=== PATIENT | female | born 1955 | race Caucasian/White ===

== ENCOUNTER 2016-04-27 15:39 | Inpatient (IN) | payer BC ==
[~2016-04-27] VITALS: Ht 149.9 cm; Wt 53.7 kg
[~2016-04-27 15:39] MED LIST: ALBU0.084; ALBU18; DOXY-216 PO; FLUT500M6; IPRASOL39; LOS50T PO; MON10T PO; NIFE60TA59 PO; PREDNISONE 5 MG TABLET; TUDORZA PRESSAIR 400 MCG; VARE0.5P4; VARE0.5P4 PO
[2016-04-27] MEDS ORDERED: SODIUM CHLORIDE 0.9% 1,000 ML IV ONE (16:08)
[2016-04-27 16:14] LABS: Basophils # (auto) 0.1 uL; Basophils % (auto) 0.3 % (0.0-2.0); Eosinophils # (auto) 0.1 uL; Eosinophils % (auto) 0.7 % (0.0-7.0); Hematocrit 42.1 % (36.0-46.0); Hemoglobin 13.5 g/dL (12.2-16.2); Lymphocytes # (auto) 4.5 uL; Lymphocytes % (auto) 28.1 % (10.0-50.0); Mean Corpuscular Hemoglobin 31.1 pg (28.0-32.0); Mean Corpuscular Hgb Conc. 32.1 g/dL (32.0-36.0); Mean Corpuscular Volume 96.9 fL (80.0-100.0); Mean Platelet Volume 7.5 fL (7.4-10.4); Monocytes # (auto) 0.9 uL; Monocytes % (auto) 5.8 % (0.0-12.0); Neutrophils # (auto) 10.5 uL; Neutrophils % (auto) 65.1 % (37.0-80.0); Platelet Count (auto) 366 10^3/uL (140-450); Red Cell Distribution Width 14.7 % (11.6-16.0); White Blood Cell 16.1 10^3/uL (4.4-10.8)
[2016-04-27] MEDS ORDERED: methylPREDNISolone SOD SUCC 125 MG/2 ML VL IV ONE (16:15)
[2016-04-27 16:32] LABS: Albumin 4.5 g/dL (3.4-5.0); BUN/Creatinine Ratio 14.3; Bilirubin, Total 0.3 mg/dL (0.2-1.0); Calcium 9.2 mg/dL (8.5-10.1); Magnesium 2.5 mg/dL (1.6-2.6); Potassium 3.9 mmol/L (3.5-5.1); Total Protein 7.3 g/dL (6.4-8.2)
[2016-04-27] MEDS ORDERED: cefTRIAXone 1GM/50ML D5W 50 ML IV ONE (17:30)
[2016-04-27] MEDS ORDERED: predniSONE 20 MG TAB PO ONE (19:15)
[2016-04-27] MEDS ORDERED: cloNIDine HCL 0.1 MG TAB PO PRN (19:15)
[2016-04-27] MEDS ORDERED: DOCUSATE SOD 100 MG CAP PO PRN (19:30)
[2016-04-27] MEDS ORDERED: HYDROcodone-ACET 5/325MG TAB PO PRN (19:30)
[2016-04-27] MEDS ORDERED: ONDANSETRON HCL 4 MG/2 ML VIAL IV PRN (19:30)
[2016-04-27] MEDS ORDERED: NITROGLYCERIN 0.4 MG SL TAB SL PRN (19:30)
[2016-04-27] MEDS ORDERED: ACETAMINOPHEN 325 MG TAB PO PRN (19:30)
[2016-04-27] MEDS ORDERED: MORPHINE SULF INJ 2 MG/ML SYRINGE 1ML IV PRN (19:30)
[2016-04-27] MEDS: LORazepam 0.5 MG TAB PO PRN (19:42)
[2016-04-27 19:45] VITALS: BP 142/79
[2016-04-27] MEDS ORDERED: AZITHROMYCIN 500MG/D5W 250ML 250 ML IV ONE (19:45)
[2016-04-27] MEDS: LOSARTAN POTASSIUM 50 MG TAB PO ONE ×2 (19:50→19:52)
[2016-04-27 20:30] VITALS: BP 158/94
[2016-04-27] MEDS: TEMAZEPAM 15 MG CAP PO PRN (20:58)
[2016-04-27] MEDS: FAMOTIDINE 20 MG TAB PO SCH (22:10)
[2016-04-27] MEDS: SODIUM CHLOR 0.9% PF (SALINE LOCK) 10ML VIAL IV SCH (22:10)
[2016-04-27] MEDS: IPRATROPIUM BROM 0.5 MG/2.5ML INH SOL NEB SCH (22:39)
[2016-04-27] MEDS: BUDESONIDE (INHALATION) 0.5 MG/2 ML NEB NEB SCH (22:39)
[2016-04-27] MEDS: ALBUTEROL SULF 2.5 MG/0.5ML(0.5%) NEB SOLN NEB SCH (22:39)
[2016-04-28] MEDS ORDERED: LORazepam 0.5 MG TAB PO ONE (00:45)
[2016-04-28 05:00] VITALS: BP 132/71
[2016-04-28 05:32] LABS: Hemoglobin 12.1 g/dL (12.2-16.2); Mean Corpuscular Hemoglobin 31.3 pg (28.0-32.0); Mean Corpuscular Volume 97.9 fL (80.0-100.0); Mean Platelet Volume 7.5 fL (7.4-10.4); Platelet Count (auto) 344 10^3/uL (140-450); Red Cell Distribution Width 14.5 % (11.6-16.0); SUSPECT VIEW TRANSMISSION; White Blood Cell 22.2 10^3/uL (4.4-10.8)
[2016-04-28 05:38] LABS: Metamyelocytes % 0; Myelocytes % 0; Promyelocytes % 0; Reactive Lymphocytes 0
[2016-04-28] MEDS: SODIUM CHLOR 0.9% PF (SALINE LOCK) 10ML VIAL IV SCH ×3 (05:43→22:01)
[2016-04-28 05:50] LABS: Albumin 3.6 g/dL (3.4-5.0); BUN/Creatinine Ratio 15.4; Calcium 8.4 mg/dL (8.5-10.1); Potassium 4.1 mmol/L (3.5-5.1)
[2016-04-28 05:58] LABS: Bilirubin, Total 0.3 mg/dL (0.2-1.0); Total Protein 6.5 g/dL (6.4-8.2)
[2016-04-28] MEDS: BUDESONIDE (INHALATION) 0.5 MG/2 ML NEB NEB SCH ×2 (07:50→18:29)
[2016-04-28] MEDS: ALBUTEROL SULF 2.5 MG/0.5ML(0.5%) NEB SOLN NEB SCH ×3 (07:50→18:28)
[2016-04-28] MEDS: IPRATROPIUM BROM 0.5 MG/2.5ML INH SOL NEB SCH ×3 (07:50→18:28)
[2016-04-28 08:00] LABS: Platelet Estimate Adequate
[2016-04-28 08:01] LABS: RBC Morphology Normal
[2016-04-28 09:07] VITALS: BP 123/69
[2016-04-28] MEDS: MULTIPLE VITAMIN TAB PO SCH (09:58)
[2016-04-28] MEDS: FAMOTIDINE 20 MG TAB PO SCH ×2 (09:58→22:01)
[2016-04-28] MEDS: LOSARTAN POTASSIUM 50 MG TAB PO SCH (09:59)
[2016-04-28] MEDS: CITALOPRAM HYDROBR 20 MG TAB PO SCH (10:00)
[2016-04-28] MEDS ORDERED: predniSONE 20 MG TAB PO SCH (10:00)
[2016-04-28] MEDS: AZITHROMYCIN 500MG/D5W 250ML 250 ML IV SCH (10:02)
[2016-04-28] MEDS: MONTELUKAST SODIUM 10 MG TAB PO SCH (10:02)
[2016-04-28] MEDS: cefTRIAXone 1GM/50ML D5W 50 ML IV SCH (10:02)
[2016-04-28 10:33] LABS: Urine Bilirubin Negative (Negative); Urine Blood Negative /uL (Negative); Urine Color Yellow (Yellow); Urine Glucose Normal (Normal); Urine Ketone Negative (Negative); Urine Mucus FEW (None Seen); Urine Nitrite Negative (Negative); Urine RBC 2 /hpf (0 - 4); Urine Squamous Epithelial Cell FEW /hpf (<5); Urine Urobilinogen Normal (Negative)
[2016-04-28 13:00] VITALS: BP 122/63
[2016-04-28 17:08] VITALS: BP 136/75
[2016-04-28] MEDS: LORazepam 0.5 MG TAB PO PRN (20:17)
[2016-04-28 22:00] VITALS: BP 129/72
[2016-04-28] MEDS: TEMAZEPAM 15 MG CAP PO PRN (22:01)
[2016-04-29] MEDS: IPRATROPIUM BROM 0.5 MG/2.5ML INH SOL NEB SCH ×3 (00:13→11:44)
[2016-04-29] MEDS: ALBUTEROL SULF 2.5 MG/0.5ML(0.5%) NEB SOLN NEB SCH ×3 (00:13→11:44)
[2016-04-29 05:00] VITALS: BP 132/78
[2016-04-29] MEDS: SODIUM CHLOR 0.9% PF (SALINE LOCK) 10ML VIAL IV SCH ×2 (06:00→14:02)
[2016-04-29] MEDS: LORazepam 0.5 MG TAB PO PRN (06:09)
[2016-04-29] MEDS: BUDESONIDE (INHALATION) 0.5 MG/2 ML NEB NEB SCH (06:30)
[2016-04-29 06:40] LABS: INR 1.01 (0.9-1.15); Prothrombin Time 10.4 sec (9.37-12.3)
[2016-04-29 06:44] LABS: Basophils # (auto) 0 uL; Basophils % (auto) 0.1 % (0.0-2.0); Eosinophils # (auto) 0.1 uL; Eosinophils % (auto) 0.5 % (0.0-7.0); Hematocrit 36.3 % (36.0-46.0); Hemoglobin 11.8 g/dL (12.2-16.2); Lymphocytes # (auto) 3.4 uL; Lymphocytes % (auto) 25.2 % (10.0-50.0); Mean Corpuscular Hemoglobin 31.3 pg (28.0-32.0); Mean Corpuscular Hgb Conc. 32.5 g/dL (32.0-36.0); Mean Corpuscular Volume 96.3 fL (80.0-100.0); Mean Platelet Volume 7.5 fL (7.4-10.4); Monocytes # (auto) 0.8 uL; Monocytes % (auto) 6.1 % (0.0-12.0); Neutrophils # (auto) 9.1 uL; Neutrophils % (auto) 68.1 % (37.0-80.0); Platelet Count (auto) 314 10^3/uL (140-450); Red Cell Distribution Width 14.5 % (11.6-16.0); White Blood Cell 13.3 10^3/uL (4.4-10.8)
[2016-04-29 06:58] LABS: Calcium 8.2 mg/dL (8.5-10.1); Magnesium 2.4 mg/dL (1.6-2.6); Potassium 3.8 mmol/L (3.5-5.1)
[2016-04-29 09:07] VITALS: BP 120/61
[2016-04-29] MEDS: MONTELUKAST SODIUM 10 MG TAB PO SCH (09:13)
[2016-04-29] MEDS: MULTIPLE VITAMIN TAB PO SCH (09:13)
[2016-04-29] MEDS: FAMOTIDINE 20 MG TAB PO SCH (09:13)
[2016-04-29] MEDS: LOSARTAN POTASSIUM 50 MG TAB PO SCH (09:13)
[2016-04-29] MEDS: CITALOPRAM HYDROBR 20 MG TAB PO SCH (09:15)
[2016-04-29] MEDS: cefTRIAXone 1GM/50ML D5W 50 ML IV SCH (09:16)
[2016-04-29] MEDS ORDERED: predniSONE 20 MG TAB PO SCH (10:00)
[2016-04-29] MEDS: AZITHROMYCIN 500MG/D5W 250ML 250 ML IV SCH (10:17)
[2016-04-29 13:15] VITALS: BP 119/75
[2016-04-29 13:22] VITALS: BP 120/61
== END 2016-04-29 15:10 | disposition home or self-care (01) | DRG 191 ==
LOC: EDBD 15:39 → ER 15:49 → TELE 15:50 → EDUNIT# 15:50 → TELE-WESTW 20:35
PROVIDERS: ADMIT Internal Medicine; ATTEND Internal Medicine
DX: J44.0 Chronic obstructive pulmonary disease with (acute) lower respiratory infection (principal); J45.901 Unspecified asthma with (acute) exacerbation; J20.9 Acute bronchitis, unspecified; J44.1 Chronic obstructive pulmonary disease with (acute) exacerbation; R09.02 Hypoxemia; F17.200 Nicotine dependence, unspecified, uncomplicated; I10 Essential (primary) hypertension; E05.00 Thyrotoxicosis with diffuse goiter without thyrotoxic crisis or storm; Z88.5 Allergy status to narcotic agent; Z99.81 Dependence on supplemental oxygen; Z88.2 Allergy status to sulfonamides; Z84.89 Family history of other specified conditions; Z80.9 Family history of malignant neoplasm, unspecified
CPT/HCPCS: 36415; 36600; 71010; 80048; 80053; 81001; 82805; 83735; 84443; 84484; 85007; 85025; 85027; 85049; 85610; 87040; 87070; 87086; 87205; 93005; 94640; 94761; 96361; 96365; 96367; 96375; J0696

== ENCOUNTER → 2016-06-17 | Outpatient (CLI) | payer BC | END | disposition home or self-care (01) | LOC: US 10:02 | PROVIDERS: ATTEND Internal Medicine | DX: E04.1 Nontoxic single thyroid nodule (principal) | CPT/HCPCS: 76942 ==

== ENCOUNTER → 2016-11-12 | Outpatient (CLI) | payer BC ==
[2016-11-12 12:41] LABS: Basophils # (auto) 0 uL; Basophils % (auto) 0.2 % (0.0-2.0); CONDITION Y; Eosinophils # (auto) 0 uL; Hematocrit 35.6 % (36.0-46.0); Hemoglobin 11.8 g/dL (12.2-16.2); Lymphocytes # (auto) 0.8 uL; Lymphocytes % (auto) 10.2 % (10.0-50.0); Mean Corpuscular Hemoglobin 32.9 pg (28.0-32.0); Mean Corpuscular Hgb Conc. 33.2 g/dL (32.0-36.0); Mean Corpuscular Volume 99.1 fL (80.0-100.0); Mean Platelet Volume 7.3 fL (7.4-10.4); Monocytes # (auto) 0.1 uL; Monocytes % (auto) 1.5 % (0.0-12.0); Neutrophils # (auto) 6.7 uL; Neutrophils % (auto) 88.1 % (37.0-80.0); Platelet Count (auto) 396 10^3/uL (140-450); Red Cell Distribution Width 14.5 % (11.6-16.0); White Blood Cell 7.6 10^3/uL (4.4-10.8)
[2016-11-12 13:05] LABS: Urine Bilirubin Negative (Negative); Urine Blood TRACE /uL (Negative); Urine Color Yellow (Yellow); Urine Glucose Normal (Normal); Urine Ketone Negative (Negative); Urine Nitrite Negative (Negative); Urine RBC <1 /hpf (0 - 4); Urine Squamous Epithelial Cell FEW /hpf (<5); Urine Urobilinogen Normal (Negative)
[2016-11-12 18:53] LABS: Potassium 4.1 mmol/L (3.5-5.1)
[2016-11-12 18:54] LABS: Albumin 4.2 g/dL (3.4-5.0); BUN/Creatinine Ratio 12.9; Bilirubin, Total 0.3 mg/dL (0.2-1.0); Calcium 8.9 mg/dL (8.5-10.1); Total Protein 7.2 g/dL (6.4-8.2)
== END | disposition home or self-care (01) ==
LOC: LAB 12:18
PROVIDERS: ATTEND Internal Medicine
DX: Z00.01 Encounter for general adult medical examination with abnormal findings (principal); R79.89 Other specified abnormal findings of blood chemistry
CPT/HCPCS: 36415; 80053; 80061; 81001; 82306; 83036; 84443; 85025

== ENCOUNTER → 2016-12-26 | Outpatient (CLI) | payer BC | END | disposition home or self-care (01) | LOC: LAB 12:45 | PROVIDERS: ATTEND Internal Medicine | DX: E03.9 Hypothyroidism, unspecified (principal); I10 Essential (primary) hypertension | CPT/HCPCS: 36415; 84439; 84443; 84481 ==